=== PATIENT | male | born 1960 | race Caucasian/White ===

== ENCOUNTER 2023-12-18 16:43 | Observation (INO) | payer BC, SELFPAY ==
[2023-12-18 12:42] VITALS: BP 103/67
[2023-12-18 13:00] VITALS: BP 120/70
[2023-12-18 13:03] LABS: % Basophils 0.6 % (0-2); % Eosinophils 1.3 % (0-6); % Immature Granulocytes 0.5 % (0-0.5); % Lymphocytes 25.6 % (20.5-51.1); % Monocytes 11.4 % (1.7-9.3); % Neutrophils 60.6 % (42.2-75.2); Absolute Basophils 0.1 10^3/uL (0-0.2); Absolute Eosinophils 0.1 10^3/uL (0-0.7); Absolute Immature Granulocytes 0.1 10^3/uL (0-0.05); Absolute Lymphocytes 2.5 10^3/uL (1.2-3.4); Absolute Monocytes 1.1 10^3/uL (0.1-0.6); Absolute Neutrophils 5.9 10^3/uL (1.4-6.5); Hematocrit 46.6 % (39.0-52.0); Hemoglobin 16.6 g/dL (13.0-18.0); Mean Corp Hgb Conc. 35.6 g/dL (33.0-37.0); Mean Corpuscular Hgb 34.2 pg (27.0-31.0); Mean Corpuscular Volume 95.9 fL (80.0-94.0); Mean Platelet Volume 9.4 fL (7.4-10.4); Nucleated Red Blood Cells % 0 % (-); Platelet Count 222 10^3/uL (130-400); Red Blood Cell Count 4.86 10^6/uL (4.70-6.10); Red Cell Dist. Width 13.5 % (11.5-14.5); White Blood Cell Count 9.7 10^3/uL (4.8-10.8)
[2023-12-18 13:15] LABS: Ammonia < 9 umol/L (9-30)
[2023-12-18 13:17] LABS: ALT (SGPT) 26 U/L (0-50); AST (SGOT) 32 U/L (17-59); Albumin 4.4 g/dl (3.5-5.0); Alkaline Phosphatase 49 U/L (38-126); Blood Urea Nitrogen 27 mg/dl (9-20); Calcium 9.4 mg/dl (8.4-10.2); Carbon Dioxide 15 mmol/L (22-30); Chloride 105 mmol/L (98-107); Estimated Creatinine Clearance 83 ml/min; Glucose 185 mg/dl (70-99); Potassium 3.8 mmol/L (3.5-5.1); Sodium 136 mmol/L (135-145); Total Bilirubin 1.2 mg/dl (0.2-1.3); Total Protein 6.6 g/dl (6.3-8.2); eGFR > 60.00
[2023-12-18 13:21] LABS: Alcohol None Detected
[2023-12-18 13:22] LABS: Lactic Acid 4.9 mmol/L (0.7-2.0)
[2023-12-18] MEDS: NSS 1000 IV ×2 (13:28→17:48)
--- NOTE | 2023-12-18 13:28 | ED.GENMED ---
History of Present Illness
General
Chief Complaint: Change in Mental Status
Source: patient, spouse and ambulance crew
Time Seen by Provider: 12/18/23 13:10
Travel History
Have you had any contact with someone who has COVID-19?: Unable to Answer
Do you have any symptoms of coronavirus? Fever > 100 degrees, chills, cough, shortness of breath, sore throat, loss of taste or smell, muscle aches, or headache?: Unable to Answer
History of Present Illness
History of Present Illness:
63-year-old male brought to the emergency room by ambulance for evaluation of confusion. Patient's states that she found him wandering [place] of the [place] he was working on his boat all morning. He was covered in sawdust making her
question if he had a fall. She also did hear sounds from the barn which could have been equipment or could have been a fall. The patient was completely disoriented not recognizing his , his dog, what day it was etc. Currently the patient is
complaining of left shoulder pain. Other than that he has no complaints other than not being able to remember events of the day. He denies headache. Denies any focal weakness numbness or tingling. Patient evidently did have a appointment with a
neurologist in the past day or 2. Patient seems to think this was for evaluation of neuropathy but he is unclear. He does not have the name of the neurologist.
Past History
Past History
ED Past Medical History: HTN, Hypercholesterolemia, Other (migraines) and Other (Diverticulitis)
ED Past Surgical History: Cardiac (AVR repair and replacement with same valve surgery on Jul 31 2018)
Social History
Tobacco: Non-smoker
Alcohol: Daily (Beer 2)
Personal:
Living: with family
Employment: Employed
Family History
Family History: Other (reviewed and non-contributory)
Phy Exam
Physical Exam
Physical Exam:
General: Awake, Alert, Oriented to person, year but not so much the day of the week. Seems somewhat dazed and mildly confused
Vitals: unremarkable
Head: Atraumatic
Eyes: Pupils equal, EOMI
Throat: Airway intact, no exudates, mildly dry mucosa
Neck: Trachea midline
Lungs: Clear and equal b/l
Heart: Regular rate, no murmurs
Abd: Soft, Nontender, No pulsatile mass
Neuro: Cranial nerves intact, muscle strength equal bilaterally, cerebellar exam normal
Skin: Warm, dry, no rash
Extremities: pulses equal b/l, no edema. Pain with extension at the left shoulder. Patient states he does have some discomfort generally due to rotator cuff but not as much as he is having today
Course
Orders/Labs/Results
Orders:
Orders
12/18/23 12:43
Electrocardiogram (*1) Urgent
Reason for Study: Bradycardia / Tachycardia
12/18/23 12:44
EKG- Treatment ONCE
12/18/23 12:47
Alcohol Urgent
Ammonia Urgent
Complete Blood Count/With Diff Urgent
Comprehensive Metabolic Panel Urgent
Creatine Phosphokinase Urgent
Comment: ADD ON
Lactic Acid Urgent
Prolactin Urgent
Comment: ADD ON
Blood Culture Urgent
CHAR Source: Blood/Venous
Specimen Description:
Date Specimen was Collected: 12/18/23
Time Specimen was Collected: 12:46
12/18/23 13:24
0.9% Sodium Chloride 1000 ml [Nss] 1,000 ml IV BOLUS
12/18/23 13:25
CT Head W/o Iv Contrast Urgent
Comment:
Reason For Exam: acute onset confusion
12/18/23 13:28
Urine Drug Abuse Screen Urgent
Date Specimen was Collected: 12/18/23
Time Specimen was Collected: 12:46
12/18/23 13:30
Shoulder, Left, Trauma CR [CR Shoulder, Trauma - Left] Urgent
Comment:
Reason For Exam: pain, ? fall
12/18/23 13:31
Electrocardiogram (*1) Urgent
Reason for Study: Syncope
Cardiac Monitoring- Treatment ONCE
EKG- Treatment ONCE
12/18/23 16:28
Admit/Transfer Patient As Directed
Co-Sign Provider:
Level of Care: Observation services
Assign to:: Medical/Surgical
Physician / Group: Jayme Gannon
Diagnosis: episode of confusion, acidosis
Reason for Hospitalization: episode of confusion, acidosis
12/18/23 16:30
Code Status As Directed
Resuscitation Status: Full Code
12/18/23 16:32
Add On- LAB Routine
Tests Added?: Prolactin/CPK
12/18/23 16:45
0.9% Sodium Chloride 1000 ml [Nss] 1,000 ml IV 100 mls/hr
12/18/23 17:10
Bisacodyl [Dulcolax] 10 mg RECTAL E79DEEP PRN
Docusate W/Senna [Senokot-S] 1 tablet PO BIDPRN PRN
Lidocaine [Lidocaine 4% Patch] 1 patch TOPICAL DAILY
Oxycodone [Roxicodone] 5 mg PO Q4HPRN PRN
Polyethylene Glycol Powder [Miralax] 17 grams PO DAILYPRN PRN
12/18/23 17:10
Activity As Directed
Activity Level: As Tolerated
Compression Sleeves [Pneumatic Compression Sleeves] As Directed
Type: Knee high
Vital Signs As Directed
Frequency: Per unit guidelines
DX Deep Vein Thrombosis Video Routine
12/18/23 17:27
Oxycodone [Roxicodone] 2.5 mg PO Q4HPRN PRN
12/19/23 06:00
Basic Metabolic Panel IN AM
Complete Blood Count/No Diff IN AM
12/19/23 08:00
Allopurinol [Zyloprim] 300 mg PO DAILY
Aspirin Low Dose EC [Aspir Low (Enteric Coated)] 81 mg PO DAILY
Dapagliflozin [Farxiga] 5 mg PO DAILY
Metoprolol Xl [Toprol Xl] 25 mg PO DAILY
Pantoprazole [Protonix] 40 mg PO DAILY
12/25/23 08:00
testosterone enanthate [Xyosted] 100 mg SC TU
tirzepatide [Mounjaro] 10 mg SC TU
Abnormal Lab Results
12/18/23
12:47
MCV 95.9 H fL
(80.0-94.0)
MCH 34.2 H pg
(27.0-31.0)
Abs Immat Gran (auto) 0.1 H 10^3/uL
(0-0.05)
Absolute Monos (auto) 1.1 H 10^3/uL
(0.1-0.6)
Monocytes % 11.4 H %
(1.7-9.3)
Carbon Dioxide 15 L mmol/L
(22-30)
BUN 27 H mg/dl
(9-20)
Glucose 185 H mg/dl
(70-99)
Lactic Acid 4.9 H* mmol/L
(0.7-2.0)
Ammonia < 9 L umol/L
(9-30)
Creatine Kinase 324 H U/L
(55-170)
Prolactin 83.8 H ng/ml
(3.7-17.9)
12/18/23 12:47
12/18/23 12:47
Vital Signs
Initial and Last Documented VS:
Initial Vital Signs
Temp Pulse Resp BP Pulse Ox
98.2 F 101 26 103/67 97
12/18/23 12:42 12/18/23 12:42 12/18/23 12:42 12/18/23 12:42 12/18/23 12:42
Last Documented Vital Signs
Temp Pulse Resp BP Pulse Ox
98.2 F 88 19 132/75 99
12/18/23 12:42 12/18/23 14:00 12/18/23 17:02 12/18/23 17:02 12/18/23 17:09
MDM/Problems Addressed
Differential Diagnosis Includes:
Syncope from cardiac dysrhythmia, syncope from heat exhaustion, head injury with amnesia, seizure, transient global amnesia
MDM/Problems Addressed:
Patient presents with confusion. Patient's symptoms began while he was alone. It is unclear if he had a fall. Patient's noted he was covered in sawdust dirt suggesting he may have been on the ground. Patient does not recall what was going
on with his symptoms began. Therefore the differential remains wide. CT here shows no acute abnormalities. Labs are not informative of the cause of the patient's symptoms. Patient will be hospitalized for cardiac monitoring and further testing.
*Radiology
Radiology exam reviewed: radiology read reviewed
*Pulse Oximetry
Patient hypoxic: no
*EKG
Interpreted by ED Provider?: Yes
Interpretation: abnormal
Comparison EKG: no comparison EKG present
Heart Rate: 101
Rate: tachycardiac
Rhythm: sinus and sinus tachycardia
[place]: normal axis
Interval: normal interval
QRS Pattern: normal QRS
Ischemia: no ischemia
*Medical Transcription Editor Interpretation
Rate: tachycardiac
Interpretation: abnormal
Rhythm: sinus tachycardia
*Critical Care Note
Total Time (30-74mins, 75-104mins- exclusive of procedures): Not Applicable
ED Attending Note
-
Portions of this chart may have been created with voice recognition software.� Occasional wrong word or��sound alike� substitutions may have occurred due to the inherent limitations of voice recognition software.
Discharge Plan
Departure
Patient Disposition: Admit
Date of Disposition: 12/18/23
Time of Disposition: 15:47
Admit to: Telemetry
Presentation/result/management discussed w/ accepting MD/DO: Hospitalist
Condition: Fair
Discharge Problem:
Syncope, Altered mental status
Interventions
Interventions:
*Risk Screen - Suicide Last Done: 12/18/23 12:50
*General Assessment Last Done: 12/18/23 12:50
*Neglect/Abuse Screening Last Done: 12/18/23 12:50
ED- Fall Risk Assessment Last Done: 12/18/23 17:09
*ED COVID-19 Vaccine History Last Done: 12/18/23 12:50
*Nursing Disposition Last Done: 12/18/23 17:09
ED- Pulmonary Assessment Last Done: 12/18/23 17:09
ED-Psychological Assessment Last Done: 12/18/23 17:09
ED- Neurological Assessment Last Done: 12/18/23 12:51
ED- Cardiac Assessment Last Done: 12/18/23 17:09
Discharge Date and Time
Discharge Date/Time: 12/18/23 17:11
--- NOTE | 2023-12-18 13:43 | CON.NEURO4 ---
Addendum entered and electronically signed by Junaid Holguin MD 12/18/23 15:05:
Studies reviewed.
I have personally examined the patient. I reviewed and agree with the PERFUSIONIST's Note.
My addenda:
Awake, alert, interactive. No acute distress.
Speech intact.
Follows 2-step requests w/o difficulty. No tremor.
Extra-ocular movements grossly intact.
Facial movements full and symmetric. Hearing intact to normal conversational volume.
Normal UE movements bilaterally.
Neck: full ROM.
Chest: no dyspnea
Heart: no JVD
Ext: (-) Clubbing, (-) Cyanosis, (-) Edema
IMPRESSIONS/RECOMMENDATIONS:
Abrupt onset of change in mental status with significant left shoulder discomfort
Most likely secondary to collapsing with head injury
No clear evidence by history or examination suggestive of seizure at this time. Differential diagnosis includes possible cardiac event leading to collapse although this is unclear.
Patient recently underwent CTA of head and neck 2 months ago which failed to demonstrate significant narrowing
Patient would benefit from MRI of brain
No clear evidence at this time patient should have advancement from the usual use of aspirin
Provide as needed therapy for the patient's headache and left shoulder pain
D/W patient / family
Will continue to follow pending results.
Original Note:
Documented by User: Fabi Gates NP 12/18/23 14:43
Consultation - Neurology 4
-
CONSULTING PHYSICIAN: Junaid Holguin MD
REFERRING PHYSICIAN: ER/Dr. Brody
DICTATED BY: KATHERIN Villa
DATE/TIME OF REQUEST: 12/18/23
DATE/TIME OF CONSULTATION: 12/18/23
Reason for Consultation: Confusion
History of Present Illness:
This is a 63-year-old right-handed male who has presented to the hospital with report of memory loss and confusion. Patient is currently followed as an outpatient by neurology Dr. Alonso at [facility] for neuropathy. Patient was previously
evaluated by our inpatient neurology service in July 2018 for report of left facial, left arm numbness, and headache one week post-op AVR at [facility]. Patient was transferred to [facility] for MRI brain imaging which he completed on 08/08/18, results were
negative for ischemic stroke but demonstrated chronic scattered supra and infratentorial microhemorrhages. Since that time, patient reports that his left facial numbness still recurs transiently every few months. EMG testing later diagnosed him with
LUE carpal tunnel syndrome and he underwent left carpal tunnel release which resolved his left arm tingling. In 2019 he had repeat MRI brain imaging in addition to cervical and thoracic spine imaging to rule out multiple sclerosis. MRI cervical
spine demonstrated mild C3-C5 disc herniation with mild spinal cord compression, no imaging findings concerning for MS.
This morning, patient reports waking up in his usual state. He went for an outpatient neurology appointment for an EMG of his RUE for further evaluation of suspected right carpal tunnel syndrome as he has been having tingling in his right hand. He
then reports heading into his barn to wash his boat. At 1125 he remembers not taking a call from a friend. His then reports hearing a loud sound from the barn which she didn't think much of. Around 1150 she reports he came out of the barn
covered in sawdust and confused. He didn't know what was going on and couldn't recall who a dog was that they just got this past Sunday. She called 911 at 1156. Patient has no recollection of this time period, the next thing he can remember is an
ambulance driving down his driveway. Lactic acid is 4.9. UDS is negative. Currently, he reports feeling cognitively back to baseline except for not remembering that 30 minute period. He complains of severe left shoulder pain and a mild posterior
head/neck ache. He has a small open abrasion on his right knee. He denies any dizziness, vision changes, speech/swallowing difficulty, numbness, weakness, nausea, chest pain, palpitations, and shortness of breath. When he is washing his boat he is
using a hose and standing on a tall ladder, but he reports he has done that a million times. His did not have time to get a good look at how things appear now in the barn but she reports the floor was soaking wet. He is taking aspirin 81mg
daily.
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
Surgical History: AVR, aortic aneurysm graft, ACL repair, hemorrhoidal banding/hemorrhoidectomy, umbilical hernia repair, left carpal tunnel release
Family History: Sudden of father age 54, sudden of paternal uncle age 49.
Social History: Former smoker. 3-4 alcohol drinks/week. Denies illicit drug use.
Allergies: No known allergies.
Home Medications: See below.
Review of Symptoms:
Patient denies any fever, chest pain, shortness of breath, GI or symptoms.
�Per the HPI.�All systems are reviewed negative except above.
Physical Exam:
The patient is afebrile, abdomen is nondistended, breathing is unlabored, skin is warm and dry, no edema. Open abrasion on right knee. Oozing olayinka on top of head, patient reports this is chronic.
NIH Stroke Scale:
I performed the NIH stroke scale on the patient on 12/18/23 at 1400. The patient scored 0 points on the NIH stroke scale assessment, which were assigned as follows: See below.
Neurologic Examination:
The patient is awake, alert and oriented x 3. He is able to follow commands and answer questions appropriately. There is no aphasia or dysarthria. On cranial nerve assessment, pupils are 3 mm bilateral, round and reactive to light and
accommodation. Visual garcía are full. Extraocular movements are intact. Facial sensations are intact and bilaterally symmetrical, there is no facial asymmetry. Hearing is intact bilaterally to normal conversation volume. Tongue palate and uvula
are midline. Sternocleidomastoid strengths are full bilaterally. Motor strengths are 5/5 bilateral upper and lower extremities on medical research [place] scale. There is no drift or involuntary movement noted. Deep tendon reflexes are 2+ bilateral
upper and lower extremities and Babinski is absent bilaterally. Sensations of pain, touch, temperature and vibration are intact and bilaterally symmetrical. There was no extinction noted on double simultaneous stimulation. Coordination is intact by
finger to nose and heel to davila bilaterally.
Lab Results: See below.
Neuro Imaging:
1. CT Head 12/18/23: pending
Differentials for the patient's presentation include:
1. Likely some sort of head trauma resulting in a post-concussive syndrome, unclear if this was due to a mechanical fall or cardiac abnormality producing syncope.
2. Low concern for seizure, TGA, TIA, or ischemic stroke.
3. Low concern for small traumatic intracranial hemorrhage but cannot entirely exclude this.
Patient has the following risk factors for their symptoms: Possible fall with head trauma
Recommendations:
-CT head noncontrast pending.
-Neurological checks.
-Cardiac workup per ER.
-Provide Tylenol for headache.
-Follow-up with Dr. Alonso as an outpatient.
Discussed patient care with: Dr. Holguin, the patient, patient's
Vital Signs and Labs
-
Vital Signs and Labs:
Vital Signs
Temp Pulse Resp BP Pulse Ox
98.2 F 101 26 103/67 97
12/18/23 12:42 12/18/23 12:42 12/18/23 12:42 12/18/23 12:42 12/18/23 12:42
Lab Results
12/18/23 12:47
12/18/23 12:47
Sodium 136 mmol/L (135-145) 12/18/23 12:47
Potassium 3.8 mmol/L (3.5-5.1) 12/18/23 12:47
BUN 27 mg/dl (9-20) H 12/18/23 12:47
Glucose 185 mg/dl (70-99) H 12/18/23 12:47
Calcium 9.4 mg/dl (8.4-10.2) 12/18/23 12:47
Ur Buprenorphine Negative (Negative) 12/18/23 13:28
Medications
-
Home Medications
�Medication �Instructions �Recorded
omeprazole magnesium 20 mg 40 mg PO DAILY 05/03/10
tablet,delayed release (Prilosec
OTC)
aspirin 81 mg tablet,delayed 81 mg PO DAILY 07/04/18
release
allopurinol 300 mg tablet 300 mg PO DAILY 08/07/18
alirocumab 75 mg/mL subcutaneous 75 mg SC Q2W 12/18/23
pen injector (Praluent Pen)
dapagliflozin propanediol 5 mg 5 mg PO DAILY 12/18/23
tablet (Farxiga)
meloxicam 15 mg tablet 15 mg PO DAILY 12/18/23
metoprolol succinate 25 mg 25 mg PO DAILY 12/18/23
tablet,extended release 24 hr
testosterone enanthate 100 mg/0.5 100 mg SC TU 12/18/23
mL subcutaneous auto-injector
(Xyosted)
tirzepatide 10 mg/0.5 mL 10 mg SC TU 12/18/23
subcutaneous pen injector
(Mounjaro)
NIH Stroke Score
Subsequent NIH Scale
Date of Subsequent NIH Scale: 12/18/23
Time of Subsequent NIH Scale: 14:00
NIH Stroke Score
Level of Consciousness: 0 - Alert
LOC Questions: 0-Answers both correctly
LOC Commands: 0-Performs both correctly
Best Horizontal Gaze: 0-Normal
Visual García: 0=Normal, no visual loss
Facial Palsy: 0=Normal, symmetrical
Motor - Right Arm: 0=No drift 10 seconds
Motor - Left Arm: 0=No drift 10 seconds
Motor - Right Le-No drift 5 seconds
Motor - Left Le-No drift 5 seconds
Limb Ataxia: 0-Absent
Sensation: 0-Normal
Best Language: 0-No aphasia
Dysarthria: 0-Normal
Extinction and Inattention: 0-No abnormality
Total Score:: 0

Documented by User: Junaid Holguin MD 12/18/23 14:54
NIH Stroke Score
NIH Stroke Score
Total Score:: 0
[2023-12-18 14:00] VITALS: BP 117/71
[2023-12-18 14:13] LABS: Amphetamines Negative (Negative); Barbiturates Negative (Negative); Benzodiazepines Negative (Negative); Buprenorphine Negative (Negative); Cocaine Negative (Negative); Marijuana Negative (Negative); Methadone Negative (Negative); Methamphetamines Negative (Negative); Opiates Negative (Negative); Phencyclidine Negative (Negative); Tricyclic Antidepressants Negative (Negative)
--- NOTE | 2023-12-18 16:33 | HPS.HSE ---
Family Physician
-
Family Physician: * NONE
Chief Complaint
-
Episode of confusion
History of Present Illness
Patient is a 63-year-old male with past medical history of essential hypertension, prediabetes, gout, testosterone deficiency, GERD, alcohol use disorder was brought in by EMS after patient was noted to be confused/disoriented for 30-40 minutes.
Apparently patient was working in barn on his boat and patient spouse found patient on ground confused. Patient does not remember having falls/syncope. No witnessed seizure-like activity/loss of bladder-bowel control or tongue bite. Patient
remembering EMS staff coming in transporting him to ER. In ER patient mentation back to normal and able to provide information. Patient denies of having any previous episodes of similar issues. No history of seizures/head trauma/brain
bleed/stroke. Patient been diagnosed with prediabetic for last 1 year.
Patient does not smoke. Does drink 3-5 alcoholic beverages every day. Denies of having any history of alcohol withdrawal.
Medical History
Past Medical History
Past Medical History: Reports Other
Additional Past Medical History:
essential hypertension, prediabetes, gout, testosterone deficiency, GERD, alcohol use disorder
Past Surgical History: Reports Other
Social History
Tobacco: Non-smoker
Drug: None
Personal:
Living: With Family
Family History
Family History: Not pertinent
Allergies / Home Medications
Allergies reflects when Allergies were last updated in [facility].
Home Medications with original date entered in [facility]
Allergy/Medication List:
Allergies
Allergy/AdvReac Type Severity Reaction Status Date / Time
No Known Allergies Allergy Verified 05/06/22 18:25
Home Medications
omeprazole magnesium 20 mg tablet,delayed release (Prilosec OTC) 40 mg PO DAILY Gastrointestinal Issue 05/03/10
aspirin 81 mg tablet,delayed release 81 mg PO DAILY Blood Clot Prevention/Tx 07/04/18
allopurinol 300 mg tablet 300 mg PO DAILY Gout 08/07/18
alirocumab 75 mg/mL subcutaneous pen injector (Praluent Pen) 75 mg SC Q2W High Cholesterol 12/18/23
dapagliflozin propanediol 5 mg tablet (Farxiga) 5 mg PO DAILY Diabetes 12/18/23
meloxicam 15 mg tablet 15 mg PO DAILY Pain 12/18/23
metoprolol succinate 25 mg tablet,extended release 24 hr 25 mg PO DAILY Blood Pressure 12/18/23
testosterone enanthate 100 mg/0.5 mL subcutaneous auto-injector (Xyosted) 100 mg SC Hormonal Agent 12/18/23
tirzepatide 10 mg/0.5 mL subcutaneous pen injector (Mounjaro) 10 mg SC TU Diabetes 12/18/23
Review of Systems
-
A 12 point ROS was completed and negative except as noted: Yes
Physical Exam
Vital Signs
Vital Signs
Temp Pulse Resp BP Pulse Ox
98.2 F 88 21 117/71 97
12/18/23 12:42 12/18/23 14:00 12/18/23 14:00 12/18/23 14:00 12/18/23 14:00
Physical Exam
General: Well Developed, Well Nourished and No Apparent Distress
HEENT: NormoCephalic, Moist mucous membranes and Atraumatic
Respiratory: Clear
Cardiac: S1/S2 and Regular Rhythm; No Murmur or Rub
GI: Soft, Non Tender, Non Distended and Normal Bowel Sounds; No Organomegaly
Rectal: Deferred by Provider
Musculoskeletal: No Clubbing, No Cyanosis and No Edema
Skin: No Rash
Neuro: Nonfocal/grossly intact
Laboratory Results
-
12/18/23 12:47
12/18/23 12:47
Laboratory Results
Lactic Acid 4.9 mmol/L (0.7-2.0) H* 12/18/23 12:47
Total Bilirubin 1.2 mg/dl (0.2-1.3) 12/18/23 12:47
AST 32 U/L (17-59) 12/18/23 12:47
ALT 26 U/L (0-50) 12/18/23 12:47
Alkaline Phosphatase 49 U/L (38-126) 12/18/23 12:47
Data Reviewed
-
CT Scan: Image Personally Visualized and interpreted and Report Reviewed by me
Lab Data: Labs Reviewed by me and Discussed with Patient
Impression/Plan
-
1. Episode of confusion
Possible seizure vs syncope vs TGA
-Denies any history of previous head injury/trauma/brain bleed/seizures/stroke
-No smoking. Patient does drink 3-5 alcoholic drinks daily
-Suspicion of possible partial or generalized tonic-clonic seizure with alcohol use
-Blood pressure normal although may have brief syncope/cardiac arrhythmia as well, check orthostatic vitals.
-CT head normal without any acute abnormality
-Possible loss differential of transient global amnesia. Neurology evaluated in ER and await further recommendation.
2. Lactic acidosis
AGAP metabolic acidosis
-Presumed type B is vitally stable
-Possibly seizure induced? No medication explaining side effect
-Maintain on IV fluid and follow-up lactic acid in morning
3. NIDDM
-Maintain on home dose of dapagliflozin
-Insulin sliding scale
4. Left shoulder pain
-Patient has history of rotator cuff pain and possibly aggravated by fall today
-Lidocaine patch/oxycodone ordered
GERD
Testosterone deficiency
Gout
DVT PPX -scd
Full code
Obs admit for the night
Total time spent : 77 mins
I personally saw and examined the patient.
I have reviewed all diagnostic interpretations and treatment plans as written.
Time includes patient management by me, time spent at the patients bedside, time to review lab and imaging results, discussing patient care, documentation in the medical record, and time spent with the family or caregiver and discussing care plan
with RN/Consultants.
[2023-12-18 17:02] VITALS: BP 132/75
[2023-12-18 17:16] LABS: Creatine Phosphokinase 324 U/L (55-170)
[2023-12-18 17:42] LABS: Prolactin 83.8 ng/ml (3.7-17.9)
[2023-12-18] MEDS: LIDOCAINE 4% PATCH 1 PATCH TOPICAL (17:48)
[2023-12-18] MEDS: ROXICODONE 5 MG PO ×2 (17:49→22:48)
[2023-12-18] MEDS: THIAMINE INJECTION 200 MG IV (21:00)
[2023-12-18] MEDS: ULTRAM 25 MG PO (21:14)
[2023-12-18 22:54] VITALS: BP 113/69
[2023-12-19] MEDS: NSS 1000 IV (04:11)
[2023-12-19] MEDS: ROXICODONE 5 MG PO ×4 (04:14→21:03)
[2023-12-19 06:55] LABS: Hematocrit 45.4 % (39.0-52.0); Hemoglobin 15.6 g/dL (13.0-18.0); Mean Corp Hgb Conc. 34.4 g/dL (33.0-37.0); Mean Corpuscular Hgb 34.2 pg (27.0-31.0); Mean Corpuscular Volume 99.6 fL (80.0-94.0); Mean Platelet Volume 9.9 fL (7.4-10.4); Platelet Count 181 10^3/uL (130-400); Red Blood Cell Count 4.56 10^6/uL (4.70-6.10); Red Cell Dist. Width 13.4 % (11.5-14.5); White Blood Cell Count 9.2 10^3/uL (4.8-10.8)
[2023-12-19 07:00] VITALS: BP 131/76
[2023-12-19 07:19] LABS: Blood Urea Nitrogen 21 mg/dl (9-20); Calcium 8.7 mg/dl (8.4-10.2); Carbon Dioxide 23 mmol/L (22-30); Chloride 108 mmol/L (98-107); Estimated Creatinine Clearance 92 ml/min; Glucose 85 mg/dl (70-99); Potassium 4.2 mmol/L (3.5-5.1); Sodium 138 mmol/L (135-145); eGFR > 60.00
[2023-12-19] MEDS: LIDOCAINE 4% PATCH 1 PATCH TOPICAL (08:38)
[2023-12-19] MEDS: PROTONIX 40 MG PO (08:40)
[2023-12-19] MEDS: FARXIGA 5 MG PO (08:40)
[2023-12-19] MEDS: FOLVITE 1 MG PO (08:40)
[2023-12-19] MEDS: ASPIR LOW (ENTERIC COATED) 81 MG PO (08:40)
[2023-12-19 08:44] LABS: Glucose - Point of Care 85 mg/dl (70-99)
[2023-12-19] MEDS: TOPROL XL 25 MG PO (08:44)
[2023-12-19] MEDS: ZYLOPRIM 300 MG PO (08:44)
[2023-12-19] MEDS: THIAMINE INJECTION 200 MG IV ×2 (08:46→20:57)
--- NOTE | 2023-12-19 12:30 | W.PN.HOSP.TC ---
Today's Communication/Plan
-
MRI brain neg
await ortho eval
Likely later discharge today
Assessment / Plan
Assessment / Plan
1. Episode of confusion
Possible seizure vs syncope vs TGA
Stroke ruled out
-Denies any history of previous head injury/trauma/brain bleed/seizures/stroke
-No smoking. Patient does drink 3-5 alcoholic drinks daily
-Suspicion of possible partial or generalized tonic-clonic seizure with alcohol use, Prolactin elevated. Discussed with neuro and not convinced. Nonetheless have advised to follow alcohol abstinence.
-Blood pressure normal and low chance orthostasis.
-CT head normal without any acute abnormality
-MRI brain ruled out any stroke
-Possible last differential of transient global amnesia.
2. Lactic acidosis
AGAP metabolic acidosis
-Presumed type B is vitally stable
-Possibly seizure induced? No medication explaining side effect
-stop further IVF
3. NIDDM
-Maintain on home dose of dapagliflozin
-Insulin sliding scale
4. Left shoulder pain
Rotator cuff inj
-Patient has history of rotator cuff pain and possibly aggravated by fall
-Lidocaine patch/oxycodone ordered
-Orthopedic surgery consulted as patient having significant pain in shoulder
GERD
Testosterone deficiency
Gout
DVT PPX -scd
Full code
Anticipated Discharge: Today
Subjective/Interval History
-
Date of Service: December 19, 2023
Complaining of significant left shoulder pain and unable to move with
No repeat episode of confusion/altered mentation overnight
Objective Data
-
Labs:
Laboratory Results
12/19/23
06:25
WBC 9.2
Hgb 15.6
Hct 45.4
Plt Count 181
Sodium 138
Potassium 4.2
Chloride 108 H
Carbon Dioxide 23
BUN 21 H
Creatinine 0.9
Glucose 85
Calcium 8.7
Vital Signs:
Vital Signs
Temp Pulse Resp BP Pulse Ox
98.2 F 86 18 131/76 96
12/19/23 07:00 12/19/23 08:44 12/19/23 07:00 12/19/23 08:44 12/19/23 08:30
I&O
12/18/23 12/19/23 12/20/23
06:59 06:59 06:59
Intake Total 1200 / 1200
Output Total 500 / 500
Balance 700 / 700
Review of Systems
-
Respiratory: Reports No Symptoms
Cardiac: Reports No Symptoms
Abdomen/GI: Reports No Symptoms
Physical Exam
-
General: No Apparent Distress and Comfortable
HEENT: Negative Oxygen
Respiratory: Clear to Auscultation
Cardiac: Regular Rhythm and S1/S2; Negative Murmur or Rub
GI: Soft, Nontender and Nondistended
Musculoskeletal: No Edema
Neuro: Awake, Alert, Oriented, No Motor Deficits and Nonfocal/Grossly Intact
Psych: Calm
[2023-12-19 12:52] LABS: Glucose - Point of Care 96 mg/dl (70-99)
[2023-12-19] MEDS: NSS IV (12:52)
--- NOTE | 2023-12-19 14:23 | W.PN.NEURO.1 ---
Today's Communication / Plan
-
-Planning for MRI left shoulder
-Cardiac telemetry inpatient
-EEG is felt to be low yield, I do not feel strongly that we need to obtain the test and patient would rather not pursue which I feel is reasonable
-If any 2nd event occurs of alteration in mental status or losing consciounsness consider EEG, cardiac rhythm monitoring
Neuro Assessment/Plan
Assessment
63-year-old male with a past no history of migraines, hypertension hyperlipidemia, aortic valve replacement presenting the hospital after confusion and had significant left shoulder injury as well.
Last thing patient can remember was working on a boat in the morning yesterday and his found him wandering outside the farm seeming confused and was covered in sawdust. He was very disoriented not recognizing his or what day of the
situation was cannot remember the events of the shoulder injury.
He has no previous instances of losing consciousness or confusion no history of TIA or stroke. No family history of seizure no seizure history as a child and no history of any recent concussions.
No tongue bite or loss of urinary or bowel function.
Neurologic examination shows normal mental status at this point
MRI brain with no structural abnormalities no significant abnormality seen
Differential diagnosis: Mechanical fall with concussion and traumatic left shoulder injury, epileptic seizure is possible but felt less likely given no significant seizure risk factors, no tongue bite or bowel or bladder incontinence, and obvious
traumatic force was applied to the left shoulder. Generally epileptic seizures result in shoulder dislocation. Syncope and subsequent concussion possible, but syncope will generrally not produce long lasting confusion. No concern for TIA. Do
not feel this is TGA as this generally would not accompany a traumatic injury to shoulder and time course is generally longer.
Patient endorses alcohol use 2-3 beers sometimes in a day but never had any issues with stopping alcohol never any withdrawal symptoms if went days to a week without alcohol
Subjective/Objective
Subjective Data
Date of Service: December 19, 2023
No acute events, a lot of shoulder pain, no history of losing consciousness previously, no losing bowel or bladder function or tongue bite or bleeding
Objective Data
Vital Signs
Temp Pulse Resp BP Pulse Ox
98.2 F 86 18 131/76 96
12/19/23 07:00 12/19/23 08:44 12/19/23 07:00 12/19/23 08:44 12/19/23 08:30
Lab Results
12/19/23 06:25
12/19/23 06:25
Sodium 138 mmol/L (135-145) 12/19/23 06:25
Potassium 4.2 mmol/L (3.5-5.1) 12/19/23 06:25
BUN 21 mg/dl (9-20) H 12/19/23 06:25
Glucose 85 mg/dl (70-99) 12/19/23 06:25
Calcium 8.7 mg/dl (8.4-10.2) 12/19/23 06:25
Ur Buprenorphine Negative (Negative) 12/18/23 13:28
Patient Allergies
No Known Allergies Allergy (Verified 05/06/22 18:25)
Review of Systems
-
History Source: Patient
All other systems: Reviewed and negative
Constitutional: No Symptoms
EENT: No Symptoms Reported
Respiratory: No Symptoms
Cardiac: No Symptoms
Abdomen/GI: No Symptoms
Genitourinary: No Symptoms
Musculoskeletal: Joint Pain and Muscle Pain
Neuro: No Symptoms
Endocrine: No Symptoms
Hematologic / Lymphatic: No Symptoms
Allergy / Immunology: No Symptoms
Physical Exam
-
General: Comfortable
Eyes: No Ptosis
HEENT: Normocephalic
Neck: No Bruits Bilaterally
Respiratory: Clear to Auscultation
Cardiac: Regular Rhythm
GI: Normal Bowel Sounds
Skin: Unremarkable
Extremities: No Clubbing
Psych: Unremarkable
Extended Neurological Exam
Mood & Affect: Mood Unremarkable and Affect Unremarkable
Attention Span & Concentration: Awake, Alert and Interactive
Memory: Reduced
Tremor: Hand Tremor Absent
Involuntary Movement: None
Speech: Quality Unremarkable and Quantity Unremarkable; Negative Expressive Aphasia or Receptive Aphasia
Cranial Nerve II: Left Eye: Pupillary Reactivity Unremarkable and Pupillary Size Unremarkable
Cranial Nerve II: Right Eye: Pupillary Reactivity Unremarkable and Pupillary Size Unremarkable
Cranial Nerves III, IV, : Extraocular Movement: Extraocular Movement Full in all Directions
Cranial Nerve VIII: Hearing: Unremarkable Hearing to Normal Conversational Volume
Muscle Strength, Overall: Other (Left arm limited due to shoulder injury, arm flexion 5/5 bilaterally)
--- NOTE | 2023-12-19 14:56 | CM ---
Patient seen at bedside with patient also present. Patient given OBS form and signed form placed on chart. Patient lives with in 3 story home with PCP Dr. Frey and he uses the [facility]. Per patient and patient previously
very independent. CM will continue to follow for discharge planning needs.
Plan; home with no needs.
[2023-12-19 15:47] VITALS: BP 131/71
[2023-12-19 16:08] LABS: Glucose - Point of Care 115 mg/dl (70-99)
--- NOTE | 2023-12-19 17:15 | CON.ORTHO ---
Consultation
-
Date/Time Consultation Requested: 945 AM 12/19/2023
Date/Time Consultation Performed: 1230 PM 12/19/2023
Requesting Provider: Jagdeep
Performing Provider: Puneet
Reason for Consultation: Left shoulder pain
Consultation - Orthopedics
History
HPI: 63-year-old [id number] male presenting to the emergency department complaints of confusion after a fall at home. He was admitted to the hospitalist service. Orthopedics was consulted for evaluation of left shoulder pain. Patient
reportedly was working on a boat at his home when he became confused and thinks that he may have fallen. He was found by his and he continued to have confusion and she called 911 and presented to the emergency department. He cannot recall the
details of about 30 minutes while he was confused. Currently he is complaining of significant left shoulder pain. He has difficulty elevating his arm and significant pain with any motion of his left shoulder. He does report that he has had
shoulder problems in the past but he thinks this is mostly in the right shoulder and had been seen on outpatient basis and had considered rotator cuff surgery but ultimately ended up not having surgery. Denies any associated numbness or tingling
left upper extremity.
Allergies / Home Medications
Past medical history: Hypertension, hyperlipidemia, prediabetes, gout, GERD, diverticulitis, carpal tunnel syndrome
Past surgical history: AVR, aortic aneurysm graft, ACL surgery, umbilical hernia repair, carpal tunnel release
Family history: Not pertinent
Social history: Lives at home with his , former smoker
Allergy/AdvReac Type Severity Reaction Status Date / Time
No Known Allergies Allergy Verified 05/06/22 18:25
�Medication �Instructions �Recorded
omeprazole magnesium 20 mg 40 mg PO DAILY Gastrointestinal 05/03/10
tablet,delayed release (Prilosec Issue
OTC)
aspirin 81 mg tablet,delayed 81 mg PO DAILY Blood Clot 07/04/18
release Prevention/Tx
allopurinol 300 mg tablet 300 mg PO DAILY Gout 08/07/18
alirocumab 75 mg/mL subcutaneous 75 mg SC Q2W High Cholesterol 12/18/23
pen injector (Praluent Pen)
dapagliflozin propanediol 5 mg 5 mg PO DAILY Diabetes 12/18/23
tablet (Farxiga)
meloxicam 15 mg tablet 15 mg PO DAILY Pain 12/18/23
metoprolol succinate 25 mg 25 mg PO DAILY Blood Pressure 12/18/23
tablet,extended release 24 hr
testosterone enanthate 100 mg/0.5 100 mg SC Hormonal Agent 12/18/23
mL subcutaneous auto-injector
(Xyosted)
tirzepatide 10 mg/0.5 mL 10 mg SC Diabetes 12/18/23
subcutaneous pen injector
(Mounjaro)
oxycodone 5 mg tablet 5 mg PO Q8H PRN Mod sev pain #14 12/19/23
tabs
Vital Signs / Lab Results
Temp Pulse Resp BP Pulse Ox
98.2 F 91 20 131/71 97
12/19/23 15:47 12/19/23 15:47 12/19/23 15:47 12/19/23 15:47 12/19/23 15:47
12/19/23 06:25
12/19/23 06:25
10 point review systems reviewed and negative unless otherwise stated
General: Pleasant, no acute distress at rest
Musculoskeletal left upper extremity
Skin intact, no erythema, no ecchymotic staining, lidocaine patch in place over lateral shoulder
Patient with significant pain with attempted forward elevation only to about 50 degrees limited by pain, patient with passive range of motion to about 130 degrees with significant guarding limiting terminal extension
Mild pain with passive external rotation
Fairly good strength with resisted external rotation
Unable to accurately assess strength with resisted abduction scapular plane due to significant pain
Significant pain with impingement testing
Distal motor and sensation at baseline
Diagnostic studies
X-rays left shoulder reviewed by myself show no acute fractures or dislocations
Assessment / Plan
63-year-old male status post fall secondary to acute confusion with left shoulder pain difficulty with overhead motion and significant weakness on examination. I would have concerns about potential acute rotator cuff tear. I did discuss obtaining
advanced imaging such as an MRI to evaluate for potential full-thickness rotator cuff tear that he may have sustained from this fall. I explained this to the patient in detail. I did reach out to the medical team and explained this to him as well.
If patient is able to obtain MRI while hospitalized certainly this would give us more information. If he is discharged prior to obtaining an MRI of left shoulder, would recommend close outpatient follow-up to obtain MRI for further evaluation.
All questions were addressed and answered. Please reach out any questions or concerns
[2023-12-19 21:33] LABS: Glucose - Point of Care 106 mg/dl (70-99)
[2023-12-19 22:42] VITALS: BP 117/75
[2023-12-20 07:00] VITALS: BP 124/80
[2023-12-20 07:30] LABS: Glucose - Point of Care 92 mg/dl (70-99)
[2023-12-20] MEDS: FARXIGA 5 MG PO (08:42)
[2023-12-20] MEDS: ASPIR LOW (ENTERIC COATED) 81 MG PO (08:42)
[2023-12-20] MEDS: ZYLOPRIM 300 MG PO (08:42)
[2023-12-20] MEDS: PROTONIX 40 MG PO (08:42)
[2023-12-20] MEDS: TOPROL XL 25 MG PO (08:43)
[2023-12-20] MEDS: LIDOCAINE 4% PATCH 1 PATCH TOPICAL (08:44)
[2023-12-20] MEDS: THIAMINE INJECTION 200 MG IV (08:44)
[2023-12-20] MEDS: FOLVITE 1 MG PO (08:44)
--- NOTE | 2023-12-20 08:44 | W.PN.HOSP.TC ---
Today's Communication/Plan
-
d/c home
Assessment / Plan
Assessment / Plan
MRI left shoulder
Full-thickness tears of supraspinatus and infraspinatus tendons with distraction, as detailed above.
Medial subluxation of biceps tendon, which is perched on lesser tuberosity at the level of the upper bicipital groove. Intra-articular segment of biceps tendon is partially torn
Tendinitis versus partial tear of the distal subscapularis tendon.
Partial tear of the posterior glenohumeral joint capsule adjacent to the glenoid.
Tear of coracohumeral ligament
Moderate osteoarthritis of AC joint
Extensive contusion or partial tear of the infraspinatus muscle and deltoid muscle. The edema in these muscles extends medially beyond the imaging field. If clinically warranted, MRI of the thorax could assess the full extent of this edema.
Benign enchondroma in proximal humeral shaft

1. Episode of confusion
Possible seizure vs syncope vs TGA
Stroke ruled out
-Denies any history of previous head injury/trauma/brain bleed/seizures/stroke
-No smoking. Patient does drink 3-5 alcoholic drinks daily
-Suspicion of possible partial or generalized tonic-clonic seizure with alcohol use, Prolactin elevated. Discussed with neuro and not convinced. Nonetheless have advised to follow alcohol abstinence.
-Blood pressure normal and low chance orthostasis.
-CT head normal without any acute abnormality
-MRI brain ruled out any stroke
-Possible last differential of transient global amnesia.
2. Lactic acidosis
AGAP metabolic acidosis
-Presumed type B is vitally stable
-Possibly seizure induced? No medication explaining side effect
-stop further IVF
3. NIDDM
-Maintain on home dose of dapagliflozin
-Insulin sliding scale
4. Rotator cuff muscle tear from injury
-patient was found on floor confused and presumed to have injury at time
-Lidocaine patch/oxycodone ordered
-MRI shoulder shows full thickness tear at supr/infraspinatus muscle with partial capusle tear, see detailed report as above
-Discussed with ortho and recommended to keep arm in sling for next 4 weeks
-patient to f/u in office in 2 weeks for further discussion for repair
GERD
Testosterone deficiency
Gout
DVT PPX -scd
Full code
More than 30 minutes spent in discharge including
Final examination of the patient
Summarizing hospital stay
Instructions for continuing care to all relevant caregivers
Preparation of discharge records, prescriptions, and referral forms
Total time spent (in minutes): 40 mins
Anticipated Discharge: Today
Subjective/Interval History
-
Date of Service: December 20, 2023
having some pain/discomfort in left shoulder
no chest pain/shortness breath
Objective Data
-
Vital Signs:
Vital Signs
Temp Pulse Resp BP Pulse Ox
98.3 F 91 18 124/80 98
12/20/23 07:00 12/20/23 07:00 12/20/23 07:00 12/20/23 07:00 12/20/23 07:00
I&O
12/19/23 12/20/23 12/21/23
06:59 06:59 06:59
Intake Total 1200 / 1200 870 / 870
Output Total 500 / 500 500 / 500
Balance 700 / 700 370 / 370
Review of Systems
-
Respiratory: Reports No Symptoms
Cardiac: Reports No Symptoms
Abdomen/GI: Reports No Symptoms
Physical Exam
-
General: No Apparent Distress and Comfortable
HEENT: Negative Oxygen
Respiratory: Clear to Auscultation
Cardiac: Regular Rhythm and S1/S2; Negative Murmur or Rub
GI: Soft, Nontender and Nondistended
Musculoskeletal: No Edema
Neuro: Awake, Alert, Oriented, No Motor Deficits and Nonfocal/Grossly Intact
Psych: Calm
--- NOTE | 2023-12-20 10:44 | CM ---
Patient discharged home this am with to provide transportation home. CM will continue to follow for discharge planning needs.
Plan; home with follow up with ortho as outpatient
--- NOTE | 2023-12-21 17:30 | W.DCSUMMARY ---
Discharge Summary
Discharge Data
Date of Admission: 12/18/23
Date of Discharge: 12/20/23
-
Pending Results: No
Hospital Course
Discharging Physician : Dr Jayme Gannon
Disposition : Home
Primary care physician : Dr Ce Novoa
Principal Discharge diagnosis :
Episode of confusion
Type B lactic acidosis
Rotator cuff muscle tear, left shoulder
Chronic Discharge diagnosis :
Gastroesophageal reflux disease
Testosterone deficiency
Gout
Hospital Course :
Patient is a 63-year-old male with above-mentioned past medical history came to ER after was found down and confused at home. Apparently episode lasted for 30-40 minutes and patient was not witnessed to have any seizure/fall. Patient was brought
in by EMS. Patient was seen in his usual state of mind by the time in ER.
Patient had a CT head in ER which did not show any acute abnormality. Patient does have history of 3-5 daily drinks and initial question of possible seizure although neurology did not feel strongly about this. An MRI brain was done which ruled out
any stroke. Potential differential of transient global amnesia versus unwitnessed seizure.
Patient was having significant left shoulder pain and was not able to abduct/move it due to shoulder pain. Orthopedic surgery was involved in care and concern of rotator cuff tear. MRI of shoulder confirmed findings of supraspinatus and
infraspinatus complete tear with subluxation of bicep head at humerus head level. Also had partial glenohumeral capsular tear. Orthopedic surgery recommended for patient to use sling for next 2 weeks and follow-up in office in 2 weeks for
discussion of definitive surgical treatment.
Patient did type B lactic acidosis improved with IV hydration.
Patient discharged home post medical stabilization.
Important imaging findings :
MRI left shoulder
Full-thickness tears of supraspinatus and infraspinatus tendons with distraction, as detailed above. Medial subluxation of biceps tendon, which is perched on lesser tuberosity at the level of the upper bicipital groove. Intra-articular segment of
biceps tendon is partially torn
Tendinitis versus partial tear of the distal subscapularis tendon. Partial tear of the posterior glenohumeral joint capsule adjacent to the glenoid. Tear of coracohumeral ligament Moderate osteoarthritis of AC joint. Extensive contusion or partial
tear of the infraspinatus muscle and deltoid muscle. The edema in these muscles extends medially beyond the imaging field. If clinically warranted, MRI of the thorax could assess the full extent of this edema. Benign enchondroma in proximal humeral
shaft
Procedure findings :
None
Discharge Plan
-
Patient Disposition: Home (Routine Discharge)
Discharge Diagnosis/Procedures: Episode of confusion, Rotator cuff tear
Condition: Fair
Diet: Regular
Additional Diets: Avoid alcohol use
Activity: As tolerated
Driving Restrictions: No driving
Bathing Restrictions: OK to Shower
Other Services: PT
Activity Restrictions/Additional Instructions:
Use left arm sling to immobilize your shoulder
Call for a follow up with Dr Escobedo's office
Referrals:
Ken Teixeira MD [Active] - in two weeks
Ce Novoa CRNP [Family Provider] - in one week
Prescriptions:
New
oxycodone 5 mg tablet
5 mg PO Q8H PRN (Reason: Mod sev pain) Qty: 14 0RF
Continued
omeprazole magnesium [Prilosec OTC] 20 MG tablet,delayed release (DR/EC)
40 mg PO DAILY
aspirin 81 MG tablet,delayed release (DR/EC)
81 mg PO DAILY
allopurinol 300 MG tablet
300 mg PO DAILY
meloxicam 15 mg Tablet
15 mg PO DAILY
metoprolol succinate 25 mg Tablet Extended Release 24 Hr
25 mg PO DAILY
dapagliflozin propanediol [Farxiga] 5 mg Tablet
5 mg PO DAILY
Praluent Pen 75 mg/mL Pen Injector
75 mg SC Q2W
Xyosted 100 mg/0.5 mL Auto-Injector
100 mg SC TU
Mounjaro 10 mg/0.5 mL Pen Injector
10 mg SC TU
Discharge Orders:
Discharge Patient (As Directed); Ordered 12/20/23
Ordered By: Jayme Gannon
Discharge Date and Time
Discharge Date/Time: 12/20/23 09:45
Print Language: TURKISH
== END 2023-12-20 09:45 | disposition home or self-care (01) ==
LOC: 4 WEST ACU 16:43
PROVIDERS: Student in an Organized Health Care Education/Training Program; ADMITTING PHYSICIAN Hospitalist; CONSULT PHYSICIAN Orthopaedic Surgery; EMERGENCY PHYSICIAN Emergency Medicine; FAMILY PHYSICIAN Nurse Practitioner; OTHER PHYSICIAN Psychiatry & Neurology Neurology
DX: R41.0 Disorientation, unspecified (principal); R41.82 Altered mental status, unspecified; E87.20 Acidosis, unspecified; M75.122 Complete rotator cuff tear or rupture of left shoulder, not specified as traumatic; M19.012 Primary osteoarthritis, left shoulder; I10 Essential (primary) hypertension; R55 Syncope and collapse; R00.0 Tachycardia, unspecified; E78.00 Pure hypercholesterolemia, unspecified; F10.90 Alcohol use, unspecified, uncomplicated; R41.3 Other amnesia; E11.40 Type 2 diabetes mellitus with diabetic neuropathy, unspecified; K21.9 Gastro-esophageal reflux disease without esophagitis; E29.1 Testicular hypofunction; M10.9 Gout, unspecified; M25.512 Pain in left shoulder; S80.211A Abrasion, right knee, initial encounter; W19.XXXA Unspecified fall, initial encounter; Y93.9 Activity, unspecified; Y92.007 Garden or yard of unspecified non-institutional (private) residence as the place of occurrence of the external cause; Z87.891 Personal history of nicotine dependence; Z79.1 Long term (current) use of non-steroidal anti-inflammatories (NSAID)
CPT/HCPCS: 70450; 70551; 73030; 73221; 80048; 80053; 80306; 82077; 82140; 82550; 82962; 83605; 84146; 85025; 85027; 87040; 93005; 96360; 97166; 99285; G0378